=== PATIENT | female | born 1970 ===

== ENCOUNTER 2024-08-09 12:46 | Outpatient (CLI) | payer OTHER | END 2024-08-09 14:45 | disposition home or self-care (01) | LOC: LAB 12:46 | PROVIDERS: ATTEND Internal Medicine | DX: N84.0 Polyp of corpus uteri (principal); N95.0 Postmenopausal bleeding ==

== ENCOUNTER 2024-09-02 06:33 | Day surgery (SDC) | payer OTHER ==
[2024-08-09 09:23] LABS: HEMATOCRIT 41.2 % (36.0-45.00); HEMOGLOBIN 13.9 g/dL (12.0-15.00); MEAN CELL VOLUME 85.9 fL (80.00-100.00); MEAN CORPUSCULAR HGB CONC 33.7 g/dl (32.0-36.0); PLATELET COUNT 269 K/uL (150-450); RED CELL DISTRIBUTION WIDTH 14.4 % (11.5-14.5)
[2024-08-09 09:25] LABS: PH,URINE 6.5 (5.0-8.0); URINE APPEARANCE Clear; URINE BILIRRUBIN Negative (NEGATIVE); URINE BLOOD Negative; URINE COLOR Yellow; URINE GLUCOSE Negative (NEGATIVE); URINE KETONE Negative (NEGATIVE); URINE LEUKOCYTE Negative; URINE NITRATE Negative; URINE PROTEIN Negative (NEGATIVE); URINE UROBILINOGEN 0.2 E.U./dl
[2024-08-09 09:27] LABS: URINE BACTERIA 517.8 uL (0.0-1933); URINE EPITHELIAL CELLS 11.2 uL (0.0-38.8); URINE RBC 6.8 uL (0.0-20.8); URINE WBC 4.9 uL (0.0-23.2)
[2024-08-09 09:42] LABS: INR 0.97; PARTIAL THROMBOPLASTIN TIME 27.1 SECONDS (22.0-34.0); PROTHROMBIN TIME 10.6 SECONDS (9.0-11.5)
[2024-08-09 10:13] LABS: ALBUMIN 4.1 gm/dL (3.4-5.0); BILIRUBIN TOTAL 0.58 mg/dL (0.3-1.2); CALCIUM 9.4 mg/dL (8.5-10.1); CREATININE SERUM 0.62 mg/dL (0.55-1.02); GFR 101.08; POTASSIUM 4.61 mEq/L (3.5-5.1); TOTAL PROTEIN 8.1 gm/dL (6.4-8.2)
[2024-09-02] MEDS ORDERED: CHLORHEXIDINE GLUCONATE 120 ML BOTTLE TOP ONE (14:45)
[2024-09-02] MEDS ORDERED: POVIDONE-IODINE 118 ML BOTT TOP ONE (14:45)
[2024-09-02] MEDS ORDERED: CEFAZOLIN SODIUM 1,000 MG VIAL IV ONE (14:45)
[2024-09-02] MEDS ORDERED: IBU600 MG PO (14:58)
[2024-09-02] MEDS ORDERED: MORGIDOX100 MG PO (14:58)
== END 2024-09-02 20:00 | disposition home or self-care (01) ==
LOC: CIR.AMB 06:33
PROVIDERS: ATTEND Obstetrics & Gynecology
DX: D25.0 Submucous leiomyoma of uterus (principal); N80.03 Adenomyosis of the uterus; N84.0 Polyp of corpus uteri; N95.0 Postmenopausal bleeding; Z88.1 Allergy status to other antibiotic agents; J45.909 Unspecified asthma, uncomplicated; R00.2 Palpitations

== ENCOUNTER 2024-09-08 19:01 | Emergency (ER) | payer OTHER ==
[~2024-09-08] VITALS: Ht 170.2 cm; Wt 77.1 kg
[~2024-09-08 19:01] MED LIST: IBU600 MG PO; MORGIDOX100 MG PO
[2024-09-08] MEDS ORDERED: TOPROL XL25 M1 (19:56)
[2024-09-08] MEDS ORDERED: KETOROLAC TROMETHAMINE 60 MG VIAL IM STA (20:35)
[2024-09-08] MEDS ORDERED: METOCLOPRAMIDE HCL 5 MG/ML VIAL IM STA (20:36)
[2024-09-08] MEDS ORDERED: hydrOXYzine PAMOATE 50 MG CAPSULE PO STA (20:37)
== END 2024-09-08 20:55 | disposition home or self-care (01) ==
LOC: ER 19:01
DX: G43.909 Migraine, unspecified, not intractable, without status migrainosus (principal); Z88.8 Allergy status to other drugs, medicaments and biological substances

== ENCOUNTER 2024-09-25 11:41 | Emergency (ER) | payer OTHER ==
[~2024-09-25] VITALS: Ht 170.2 cm; Wt 75.7 kg
[~2024-09-25 11:41] MED LIST changes: +TOPROL XL25 M1
[2024-09-25] MEDS ORDERED: KETOROLAC TROMETHAMINE 30 MG VIAL IM ONE (14:15)
[2024-09-25] MEDS ORDERED: ORPHENADRINE CITRATE 30 MG/ML AMPUL IM ONE (14:15)
[2024-09-25 14:33] LABS: HEMATOCRIT 42.7 % (36.0-45.00); HEMOGLOBIN 14.4 g/dL (12.0-15.00); MEAN CELL VOLUME 86.2 fL (80.00-100.00); MEAN CORPUSCULAR HEMOGLOBIN 29.2 pg (27.00-32.0); MEAN CORPUSCULAR HGB CONC 33.8 g/dl (32.0-36.0); PLATELET COUNT 328 K/uL (150-450); RED BLOOD COUNT 4.95 M/uL (4.00-6.00); RED CELL DISTRIBUTION WIDTH 14.1 % (11.5-14.5)
[2024-09-25 14:46] LABS: URINE APPEARANCE Clear; URINE BILIRRUBIN Negative (NEGATIVE); URINE BLOOD Negative; URINE COLOR Yellow; URINE GLUCOSE Negative (NEGATIVE); URINE KETONE Negative (NEGATIVE); URINE LEUKOCYTE Negative; URINE NITRATE Negative; URINE PROTEIN Negative (NEGATIVE); URINE UROBILINOGEN 0.2 E.U./dl
[2024-09-25 14:50] LABS: CREATININE SERUM 0.71 mg/dL (0.55-1.02); GFR 86.44; POTASSIUM 4.09 mEq/L (3.5-5.1)
[2024-09-25 14:51] LABS: URINE BACTERIA 939.9 uL (0.0-1933); URINE EPITHELIAL CELLS 15.9 uL (0.0-38.8); URINE RBC 10.8 uL (0.0-20.8); URINE WBC 5.8 uL (0.0-23.2)
[2024-09-25 14:57] LABS: URINE CAST 0.45 uL (0.0-1.40)
== END 2024-09-25 15:48 | disposition home or self-care (01) ==
LOC: ER 11:41
PROVIDERS: General Practice
DX: R51.9 Headache, unspecified (principal); M19.90 Unspecified osteoarthritis, unspecified site; M94.0 Chondrocostal junction syndrome [Tietze]; K58.8 Other irritable bowel syndrome; R00.0 Tachycardia, unspecified; Z88.8 Allergy status to other drugs, medicaments and biological substances